=== PATIENT | female | born 1965 | race Caucasian/White ===

== ENCOUNTER 2019-08-14 11:13 | Day surgery (SDC) | payer OTHER ==
[2019-08-12 17:03] VITALS: BMI 35.5
--- NOTE | 2019-08-14 12:05 | HP ---
History & Physical Update - Physical Physical: No Change - Assessment Assessment: No Change - Plan Plan: No Change
[2019-08-14] MEDS ORDERED: MIDAZOLAM HCL 2 MG/2 ML SINGLE DOSE VIAL ONE (12:17)
[2019-08-14] MEDS ORDERED: PROPOFOL 20 ML ONE ×2 (12:17)
[2019-08-14] MEDS ORDERED: SUCCINYLCHOLINE CHLORIDE 200 MG/10 ML SYRINGE ONE (12:18)
[2019-08-14] MEDS ORDERED: BUPIVACAINE HCL/PF 2.5 MG/ML - 30 ML VIAL IJ ONE (12:59)
[2019-08-14] MEDS ORDERED: DEXAMETHASONE SOD PHOSPHATE 4 MG/1 ML VIAL ONE (13:04)
[2019-08-14] MEDS ORDERED: KETOROLAC TROMETHAMINE 30 MG/1 ML VIAL ONE (13:04)
[2019-08-14] MEDS ORDERED: LIDOCAINE HCL/PF 2% SDV 5ML VIAL ONE (13:04)
[2019-08-14] MEDS ORDERED: ONDANSETRON 4 MG/2 ML VIAL ONE (13:04)
[2019-08-14] MEDS ORDERED: ceFAZolin SODIUM 1 GM VIAL ONE (13:04)
[2019-08-14] MEDS ORDERED: BUPIVACAINE HCL/PF 0.25% (2.5MG/ML) 10 ML VIAL IJ ONE ×2 (14:12)
[2019-08-14] MEDS ORDERED: oxyCODONE HCL 5 MG TABLET PO PRN ×2 (14:30)
[2019-08-14] MEDS ORDERED: ONDANSETRON 4 MG/2 ML VIAL IVPUSH PRN (14:30)
[2019-08-14] MEDS ORDERED: PROMETHAZINE HCL 25 MG/1 ML VIAL IVPUSH PRN (14:30)
[2019-08-14] MEDS ORDERED: IBUPROFEN 400 MG TABLET (FP) PO PRN (15:33)
--- NOTE | 2019-08-14 15:33 | OPR ---
Date of Procedure: 08/14/2019 Procedure: Left Knee- 1. Diagnostic arthroscopy 2. Arthroscopic partial medial menisectomy (47721). 3. Arthroscopic chondroplasty (24642). 4. Arthroscopic removal of loose bodies (58365). 5. Arthroscopic Knee synovectomy, limited (64596). Preoperative Diagnoses: 1. Medial meniscus tear, left. 2. Chondromalacia, unspecified site. 3. Loose body in knee, left knee. Postoperative Diagnoses: 1. Medial meniscus tear, left. 2. Chondromalacia of the patella, trochlea, medial and lateral femoral condyles , medial and lateral tibial plateaus. 3. Loose bodies in knee, left knee. 4. Synovitis. Surgeon: Huang Wolfe DO Anesthesia: general Estimated Blood Loss: minimal Fluids: crystalloid Urine output: not measured Implants: none Tourniquet time: 0 Specimens: arthroscopic shavings and loose bodies, left knee Complications: none Indications: Amanda Moseley presented to us with left knee pain after a mechanical fall that failed conservative measures. Her symptoms, signs, and imaging were consistent with the above noted diagnoses. She ultimately elected to proceed with surgical intervention after discussion of the risks, benefits, alternatives. We discussed risks including but not limited to, bleeding, pain, infection, scarring, damage to neurovascular structures, blood clots, pulmonary embolus, need for additional surgery, incomplete relief of pain, and incomplete return of function. She expressed understanding and wished to proceed. She underwent preoperative medical evaluation clearance and optimization prior to surgery. Procedure Details: On the day of surgery, the patient was seen and identified in the preoperative holding area, and the operative site was confirmed with the patient and marked. The risks and benefits of surgery were again reviewed with the patient, and she elected to proceed. The patient was brought back to the operating room and positioned on the operating room table in a supine position, with care to pad all bony prominences and in neutral alignment. SCDs were placed over the contralateral extremity. A nonsterile tourniquet was placed over the proximal thigh, and the knee was then prepped and draped in the usual sterile fashion. A timeout was performed, confirming the correct operative site, as well as the administration of IV antibiotics and the availability of all necessary personnel and equipment. Examination under anesthesia showed full range of motion, stable to AP, varus and valgus stresses. After localization with palpation, 10cc of 0.25% marcaine were used to infiltrate the portal sites. The anterolateral portal was started with a spinal needle, scalpel, hemostat and blunt trocar. The arthroscopy camera was inserted and under direct visualization, an anteromedial portal was started again with a spinal needle, scalpel, hemostat, blunt trocar. Diagnostic knee arthroscopy demonstrated moderate synovitis. There were multiple loose body fragments that appeared partially encapsulated within the suprapatellar pouch and capsular tissue. The patella was centered in the trochlear groove. The trochlea showed no significant dysplasia. There were Grade III and IV changes on the undersurface of the patella and Grade II changes on the trochlea. There were no loose bodies in the medial or lateral gutters. The medial compartment showed Grade II and Grade III chondral changes on the medial femoral condyle and Grade I chondral changes on the medial tibial plateau. The medial meniscus showed a complex tear of the posterior horn, which was resected with biters and diego until the remaining meniscus did not have a sharp flap and was stable. A chondroplasty of the medial femoral condyle and medial tibial plateau was then performed to stable margins. The ACL and PCL were probed and found to be intact. The lateral compartment showed Grade I and II chondral defects on the lateral femoral condyle and Grade I and II chondral defects on the lateral tibial plateau. The lateral meniscus was probed and found to be stable. A chondroplasty of the lateral femoral condyle and lateral tibial plateau was then performed to stable margins. Attention was then turned to the patellofemoral joint and suprapatellar pouch. There were multiple loose body fragments, some of which were partially scarred to the capsular tissue. We placed some tension on this and used a radiofrequency device to release adhesions involving the fragments. Upon completion of this, an arthroscopic grabber wwas used to remove the fragments from the knee joint. Three loose bodies measuring about 1x0.5 cm, 1x0.5 cm, and 1x2.5 cm were sent to pathology. A chondroplasty of the patella and trochlea was then performed to stable margins. A limited synovectomy of the patellofemoral joint was then performed. We thoroughly irrigated this space when this portion of the case was complete to ensure there were no additional loose between the joints or posterior knee. All instruments with and removed, and the knee was again thoroughly irrigated. Portals were closed using 40 Nylonl, and dressed with xereform, 4x4s, ABDs, webril and a loosely wrapped isrrael bandage. The patient was awakened from anesthesia and transferred to the PACU in stable condition. There were no complications. Postoperative plan: The patient will be on crutches for 3 days. Physical therapy to begin in 2 weeks.
[2019-08-14 16:08] VITALS: BP 126/74; PULSE 74; TEMP 97.9
--- NOTE | 2019-08-21 13:44 | PATH ---
Surgical Pathology Report Patient Name: IRON CAMEJO Med. Rec. #: [id number] /Age/Gender: 1965 (Age: 53) / F Account: [id number] Location: [facility] AMBULATORY Taken: 08/14/2019 Received: 08/14/2019 Reported: 08/21/2019 Physicians: Huang Wolfe DO Specimen(s) Received A: SHAVINGS LEFT KNEE B: LOOSE BODY LEFT KNEE Clinical History Left knee medial meniscus tear, loose body Final Diagnosis A. KNEE, LEFT, ARTHROSCOPIC SHAVINGS: FIBROSYNOVIAL TISSUE SHOWING NECROSIS, OLD HEMORRHAGE WITH MARKED HISTIOCYTIC REACTION AND REACTIVE HYPERPLASIA. B. KNEE, LEFT, "LOOSE BODY", REMOVAL: FIBROSYNOVIAL TISSUE SHOWING NECROSIS, OLD HEMORRHAGE WITH MARKED HISTIOCYTIC REACTION AND REACTIVE HYPERPLASIA. (SEE NOTE). Note: No loose bodies are identified. Electronically Signed Eugenia Ramachandran M.D. Gross Description A. Received in formalin labeled "left knee shavings," is a 4.5 x 4.5 x 0.3 cm aggregate of julien-brown soft tissue fragments. A union contract representative portion is submitted in one cassette. B. Received in formalin labeled "left knee loose body," is a 2.7 x 1.8 x 0.3 cm aggregate of multiple julien-brown, unoriented portions of soft tissue. The specimen is entirely submitted in one cassette. /08/17/2019 saudi08/17/2019
== END 2019-08-14 16:25 | disposition home or self-care (01) ==
LOC: FASU 11:13
PROVIDERS: ATTEND Orthopaedic Surgery
PROC: 0SCD4ZZ Extirpation of Matter from Left Knee Joint, Percutaneous Endoscopic Approach (ICD-10-PCS; 2019-08-14)
PROC: 0SBD4ZZ Excision of Left Knee Joint, Percutaneous Endoscopic Approach (ICD-10-PCS; 2019-08-14)
PROC: 0SBD4ZZ Excision of Left Knee Joint, Percutaneous Endoscopic Approach (ICD-10-PCS; principal; 2019-08-14 13:22)
DX: S83.232A Complex tear of medial meniscus, current injury, left knee, initial encounter (principal); M22.42 Chondromalacia patellae, left knee; M23.42 Loose body in knee, left knee; M65.9 Synovitis and tenosynovitis, unspecified; W19.XXXA Unspecified fall, initial encounter; Y93.9 Activity, unspecified; Y92.9 Unspecified place or not applicable
CPT/HCPCS: 88304-TC; 94760